=== PATIENT | female | born 1975 | race Caucasian/White ===

== ENCOUNTER → 2016-12-22 | Outpatient (CLI) | payer BC | LOC: MAMO 13:00 | DX: N64.89 Other specified disorders of breast (principal); N63 Unspecified lump in breast | CPT/HCPCS: G0206 ==

== ENCOUNTER → 2017-01-27 | Outpatient (CLI) | payer BC | LOC: RAD 10:21 | DX: M25.551 Pain in right hip (principal); M25.552 Pain in left hip; M54.9 Dorsalgia, unspecified; M54.2 Cervicalgia | CPT/HCPCS: 72050; 72110; 73522 ==

== ENCOUNTER → 2021-02-26 | Outpatient (CLI) | payer BC ==
[2021-02-27 16:13] LABS: THYROGLOBULIN ANTIBODY <1.0 IU/mL (0.0-0.9); THYROGLOBULIN BY IMA 10.4 ng/mL (1.5-38.5)
== END ==
LOC: LAB 12:36
PROVIDERS: Internal Medicine
DX: C73 Malignant neoplasm of thyroid gland (principal)
CPT/HCPCS: 36415; 84443; 86800

== ENCOUNTER → 2021-03-10 | Outpatient (CLI) | payer BC | LOC: KOH-I 14:14 | DX: J32.9 Chronic sinusitis, unspecified (principal); R51.9 Headache, unspecified | CPT/HCPCS: 70486 ==

== ENCOUNTER → 2021-05-25 | Outpatient (CLI) | payer BC | LOC: EMI 08:15 | DX: G44.89 Other headache syndrome (principal); G43.009 Migraine without aura, not intractable, without status migrainosus; M54.81 Occipital neuralgia | CPT/HCPCS: 70551 ==